=== PATIENT | male | born 1950 | race Caucasian/White ===

== ENCOUNTER 2022-10-26 12:45 | Outpatient (CLI) | payer MEDICARE ==
[~2022-10-26 12:45] MED LIST: AML5T; ATN50T; ENLP10T
== END 2022-10-26 13:30 ==
LOC: SLEEP 12:45
PROVIDERS: ATTEND Nurse Practitioner Family
DX: G47.33 Obstructive sleep apnea (adult) (pediatric) (principal)
CPT/HCPCS: G0399

== ENCOUNTER 2023-03-23 05:49 | Outpatient (CLI) | payer MEDICARE ==
[~2023-03-23] VITALS: Ht 170 cm; Wt 93.5 kg
[2023-03-25] MEDS ORDERED: CHOL20003 PO (15:20)
[2023-03-25] MEDS ORDERED: MULT-1061 PO (15:20)
[2023-03-25] MEDS ORDERED: AMLO-250 PO (15:20)
[2023-03-25] MEDS ORDERED: TIRZ2.5P SQ (15:20)
[2023-03-25] MEDS ORDERED: METF625T PO (15:20)
[2023-03-25] MEDS ORDERED: HYDR25TA4 PO (15:20)
[2023-03-25] MEDS ORDERED: ATEN50TA PO (15:20)
[2023-03-25] MEDS ORDERED: ENAL-66 PO (15:20)
[2023-03-25] MEDS ORDERED: ATOR10TA66 PO (15:20)
== END 2023-03-25 15:22 | disposition home or self-care (01) ==
LOC: PREOP 05:49
PROVIDERS: ATTEND Surgery
DX: Z01.818 Encounter for other preprocedural examination (principal)

== ENCOUNTER 2023-04-05 10:24 | Day surgery (SDC) | payer MEDICARE ==
[~2023-04-05] VITALS: Ht 170.2 cm; Wt 93.5 kg
[~2023-04-05 10:24] MED LIST changes: +AMLO-250 PO; +ATEN50TA PO; +ATOR10TA66 PO; +CHOL20003 PO; +ENAL-66 PO; +HYDR25TA4 PO; +METF625T PO; +MULT-1061 PO; +TIRZ2.5P SQ
[2023-04-05] MEDS ORDERED: LACTATED RINGERS 1,000 ML 1,000 ML IV STA (10:40)
--- NOTE | 2023-04-05 10:40 | Progress Note-Pre Operative ---
Pre-Operative Progress Note Date H&P Reviewed: Apr 05, 2023 Time H&P Reviewed: 10:40 History & Physical: H&P Reviewed, Patient Examed, No changes noted Pre-Operative Diagnosis: positive cologuard ANTONELLA SILVA DO Apr 05, 2023 10:40
[2023-04-05 10:51] VITALS: BP 150/75
[2023-04-05] MEDS ORDERED: MIDAZOLAM INJ 2 MG/2 ML VIAL ONE (11:05)
[2023-04-05 11:38] VITALS: BP 105/57
--- NOTE | 2023-04-05 11:38 | Progress Note-Post Operative ---
Post-Operative Progess Note Surgeon (s)/Health Equipment Servicer (s) Surgeon ANTONELLA SILVA DO Health Equipment Servicer: NA Pre-Operative Diagnosis positive cologuard Post-Operative Diagnosis Rectal polyps x2. Sigmoid polyp x1. Diverticulosis Procedure & Operative Findings Date of Procedure 04/05/23 Procedure Performed/Findings Colonoscopy with hot biopsy polypectomy x2. Snare polypectomy x1 Anesthesia Type per CLOTH WEIGHER Estimated Blood Loss Estimated blood loss (mL): none Specimens/Packing Specimens Removed rectal and sigmoid polyps ANTONELLA SILVA DO Apr 05, 2023 11:38
--- NOTE | 2023-04-05 11:39 | Discharge Inst-Simple/Standard ---
Discharge Inst-Standard Patient Instructions/Follow Up Plan of Care/Instructions/FU: 2 weeks raimundo Activity as Tolerated: Yes Discharge Diet: Regular Diet (high fiber diet) ANTONELLA SILVA DO Apr 05, 2023 11:39
[2023-04-05 11:43] VITALS: BP 112/62
[2023-04-05 11:45] VITALS: BP 112/62
--- NOTE | 2023-04-05 12:07 | Anesthesia-General Post-Op ---
MAC Patient Condition Mental Status/LOC: Same as Preop Cardiovascular: Satisfactory Nausea/Vomiting: Absent Respiratory: Satisfactory Pain: Controlled Complications: Absent Post Op Complications Complications None Follow Up Care/Instructions Patient Instructions None needed. Anesthesiology Discharge Order Discharge Order Patient is doing well, no complaints, stable vital signs, no apparent adverse anesthesia problems. No complications reported per nursing. VENUS JOHNSON CRNA Apr 05, 2023 12:07
[2023-04-05 12:30] VITALS: BP 112/62
[2023-04-05 12:45] VITALS: BP 135/72
--- NOTE | 2023-04-05 20:14 | OPERATIVE REPORT ---
DATE OF SERVICE: 04/05/2023 PREOPERATIVE DIAGNOSIS: Positive Cologuard. POSTOPERATIVE DIAGNOSES: Diverticulosis and colon polyps. PROCEDURE: Colonoscopy with hot biopsy polypectomy x2 and snare polypectomy x1. SURGEON: Antonella Ruiz DO ANESTHESIA: Per [facility] [employer] [facility]. ESTIMATED BLOOD LOSS: None. COMPLICATIONS: None. INDICATIONS: The patient is a 73-year-old male with positive Cologuard. He understands risks and benefits of procedure and wished to proceed. Consent was signed in chart. DESCRIPTION OF PROCEDURE: The patient was taken to endoscopy suite, placed in left lateral recumbent position. Timeout was performed. Digital rectal exam was performed. No palpable polyps, masses or ulcerations. Scope was inserted in the rectum, advanced all the way to the cecum with minimal difficulty. Prep was adequate. Scope was slowly retracted back. No polyps, masses or ulcerations in the cecum, ascending, transverse and descending colon. Sigmoid colon had diverticulosis present. Sigmoid polyp was present, which hot biopsy polypectomy was performed. Scope was then continuously retracted back. Small rectal polyp was present, which hot biopsy polypectomy. The larger greater than 1 cm rectal polyp was present, which snare polypectomy was performed. This was removed and obtained for pathology. Scope was reinserted and retroflexed noting no other pathology. Scope was returned to its normal position, slowly withdrawn until completely removed. The patient tolerated the procedure well without any complications, taken to recovery room in stable condition. RECOMMENDATIONS: The patient will repeat colonoscopy in one year due to large polyp. We will follow up on pathology in 2 weeks. Any issues before that, be seen at that time. Job ID: [id number] DocumentID: [id number] Dictated Date: 04/05/2023 11:37:38 Sld Teacher Date: 04/05/2023 20:12:00 Dictated By: ANTONELLA RUIZ DO
== END 2023-04-05 12:30 | disposition home or self-care (01) ==
LOC: ENDO 10:24
PROVIDERS: ATTEND Surgery
DX: Z12.11 Encounter for screening for malignant neoplasm of colon (principal); D12.8 Benign neoplasm of rectum; D12.5 Benign neoplasm of sigmoid colon; K62.1 Rectal polyp; K57.30 Diverticulosis of large intestine without perforation or abscess without bleeding; G47.33 Obstructive sleep apnea (adult) (pediatric); R22.41 Localized swelling, mass and lump, right lower limb